=== PATIENT | male | born 1980 | race Caucasian/White ===

== ENCOUNTER 2018-12-26 20:37 | Inpatient (IN) | payer OTHER, SELFPAY ==
--- NOTE | 2018-12-26 | DI.CT.S_ITS ---
PROCEDURE: CT SOFT TISSUE NECK WO CON INDICATIONS: Sublingual salivary gland swelling, neck swelling TECHNIQUE: Non-contrast 3.0 mm axial sections acquired from the sella to the aortic arch. Additional oblique axial 3.0 mm sections acquired through the pharynx. 3 mm thick coronal and sagittal reformats were generated. For radiation dose reduction, the following was used: automated exposure control. COMPARISON: None. FINDINGS: Image quality: Excellent. Lymph nodes: No enlarged lymph nodes seen throughout the neck. Vessels: Non-opacified vessels appear normal in caliber. Neck spaces: There is a mass involving the tongue base measuring 2.4 x 3.8 cm. The vocal cords, false vocal cords, pyriform sinuses, epiglottis, vallecula, and tongue base all appear normal. Extramucosal spaces appear unremarkable. Glands: The parotid and submandibular glands appear normal, without stones. Thyroid gland is normal. Miscellaneous: Visualized brain and orbits appear normal. Lung apices appear clear. Superficial soft tissues appear normal. IMPRESSION: 1. A 2.4 x 3.8 cm mass involving the tongue base. Recommend direct visualization. 2. Normal appearance of parotid and submandibular glands. 3. An air-fluid level in the left maxillary sinus consistent with acute sinusitis and 4. No cervical lymphadenopathy. The result was discussedwith Dr. Grayson prior to dictation. Dictated by: Mi Godfrey M.D. on 12/27/2018 at 7:29 Transcribed by: JE on 12/27/2018 at 7:35 Approved by: Mi Godfrey M.D. on 12/27/2018 at 10:01
[2018-12-26] MEDS: FAMOTIDINE 20 MG/50 ML PIGGYBACK 200 MG IV (20:45)
--- NOTE | 2018-12-26 20:48 | ED.GENADULT ---
HPI - General Adult General Chief complaint: Allergic Reaction Stated complaint: tongue swelling, difficulty breathing after eating Time Seen by Provider: 12/26/18 20:42 Source: patient Mode of arrival: ambulatory Limitations: no limitations History of Present Illness HPI narrative: patient is a 37-year-old otherwise healthy male here for evaluation of swelling under his tongue. Patient states that earlier this afternoon he started to notice some swelling under the tongue that made it difficult for him to talk. He states that since this afternoon and has worsened somewhat. No problems breathing. Does have some difficulty with swallowing but he feels that that is because his tongue feels enlarged. He has no new exposures. Has not taking any medicines. He states that this was not associated with eating anything. No recent travel. No rashes. No abdominal pain. No headache. Has never anything like this before. Has not tried anything for the symptoms prior to arrival. Related Data Home Medications Medication Instructions Recorded Confirmed No Known Home Medications 12/26/18 12/26/18 Allergies Allergy/AdvReac Type Severity Reaction Status Date / Time No Known Drug Allergies Allergy Verified 12/26/18 21:08 Review of Systems Constitutional Denies fever(s) and Denies headache(s) Eyes Denies blurry vision and Denies itchy eyes ENT Ears, Nose, Mouth, and Throat: Denies vertigo, Denies dizziness, Denies headache(s), Denies hoarseness, Denies lip swelling, Denies epistaxis, Denies mouth pain, Denies nasal congestion, Denies nasal discharge, Denies nasal obstruction, Denies nose pain, Denies sore throat, Denies throat swelling and Reports tongue swelling Cardiovascular Denies chest pain and Denies dyspnea Respiratory Denies dyspnea and Denies wheezing Gastrointestinal Gastrointestinal: Denies abdominal pain, Denies nausea and Denies vomiting Genitourinary Denies dysuria Musculoskeletal Denies myalgias and Denies arthralgias Integumentary/Breasts Denies rash Neurologic Denies vertigo, Denies dizziness and Denies headache(s) Hematologic/Lymphatic Denies easy bleeding and Denies easy bruising Allergic/Immunologic Denies urticaria, Denies itchy eyes, Denies lip swelling, Denies throat swelling, Reports tongue swelling and Denies wheezing PFSH Medical History Healthy adult (Acute) Social History Smoking Status: Current some day smoker Social History Smoking Status: Current some day smoker Exam Initial Vital Signs Initial Vital Signs: Vital Signs Temperature 97.9 F 12/26/18 21:02 Pulse Rate 76 12/26/18 21:02 Respiratory Rate 20 12/26/18 21:02 Blood Pressure 138/90 12/26/18 21:02 Pulse Oximetry 98 12/26/18 21:02 Const General: cooperative, healthy appearing, comfortable, well developed, well groomed and No acute distress Nutritional Appearance: average body habitus Orientation: alert, awake and oriented x3 HENMT Head: normal to inspection and normocephalic Ears: TM's normal bilaterally Nose: external nose normal Face and sinus: normal facial exam Mouth: lip normal, tongue normal, No drooling, muffled voice and other ( Patient with swelling bilateral under his tongue with left greater than r) Teeth and gingiva: dentition normal Neck Lymphatic: No lymphadenopathy Chest Chest: normal inspection of the chest Resp Effort & Inspection: normal respiratory effort Auscultation: clear to auscultation bilaterally Cardio Rate: regular rate Rhythm: regular rhythm Pulses: radial pulses present GI Inspection: non-distended Palpation: soft Skin Lesions: no lesions Rashes: no rashes Neuro General: alert, awake and oriented x3 Extrem General: normal to inspection and capillary refill normal Psych Appearance: grossly normal and well kempt Course Orders Ordered: ED Orders 12/26/18 20:50 Basic Metabolic Panel Stat C-Reactive Protein Quant Stat Complement C4 Stat Complete Blood Count AUTO DIFF Stat Erythrocyte Sedimentation Rate Stat Hepatic (Liver) Panel Stat Sodium Chloride (Normal Saline 0.9%) 1,000 mls @ 125 mls/hr IV CONT TALIB Last Admin: 12/26/18 20:57 Dose: 125 mls/hr Discontinued Medications Diphenhydramine HCl (Benadryl) 25 mg IV NOW ONE Stop: 12/26/18 20:47 Last Admin: 12/26/18 20:56 Dose: 25 mg Famotidine (Pepcid) 20 mg in 50 mls @ 200 mls/hr IV NOW ONE Stop: 12/26/18 21:00 Last Infusion: 12/26/18 21:14 Dose: 0 mls/hr Admin: 12/26/18 20:45 Dose: 200 mls/hr Methylprednisolone (Solu-Medrol 125 Mg Vial) 125 mg IV NOW ONE Stop: 12/26/18 20:47 Last Admin: 12/26/18 20:57 Dose: 125 mg Vital Signs - 8 hr 12/26/18 21:02 12/26/18 21:30 12/26/18 22:00 Temperature 97.9 F Pulse Rate 76 72 Respiratory Rate 20 12 16 Blood Pressure 138/90 Blood Pressure [Right Arm] 113/72 124/70 Pulse Oximetry 98 95 98 Medical Decision Making Lab Data Lab results reviewed: Yes I reviewed the patient's lab results. Result diagrams: 12/26/18 20:50 12/26/18 20:50 Lab Results 12/26/18 12/26/18 12/26/18 Range/Units 20:50 20:50 20:50 WBC 11.9 H (4.5-11.0) X10^3/uL RBC 4.92 (4.5-5.9) X10^6/uL Hgb 14.6 (13.5-17.5) g/dL Hct 42.7 (41-53) % MCV 86.9 (80-100) fL MCH 29.6 (26-34) PG MCHC 34.1 (30-36) % RDW 13.1 (11.6-14.8) % Plt Count 243 (150-400) X10^3/uL Neut % (Auto) 64.7 (50-75) % Lymph % (Auto) 27.7 (25-40) % [place] % (Auto) 5.4 (3-14) % Eos % (Auto) 1.3 L (2-4) % Baso % (Auto) 0.9 (0-2) % Neut # (Auto) 7700 H (8274-3192) /uL Lymph # (Auto) 3300 (9162-4280) /uL [place] # (Auto) 600 (0-900) /uL Eos # (Auto) 200 (0-450) /uL Baso # (Auto) 100 (0-100) /uL ESR 2 (0-15) MM/HR Sodium 139 (137-145) mmol/L Potassium 4.0 (3.4-5.1) mmol/L Chloride 100 (98-107) mmol/L Carbon Dioxide 27 (22-32) mmol/L BUN 20 (9-20) mg/dL Creatinine 1.20 (0.66-1.25) mg/dL Estimated GFR > 60.0 (>60) mL/min BUN/Creatinine Ratio 16.7 (6-22) Glucose 124 H (70-100) mg/dL Calcium 9.4 (8.4-10.2) mg/dL Total Bilirubin (0.2-1.3) mg/dL Conjugated Bilirubin (0.0-0.3) md/dL Unconjugated Bilirubin (0.0-1.1) mg/dL AST (17-59) IU/L ALT (21-72) IU/L Alkaline Phosphatase (38-126) U/L C-Reactive Protein (<1.0) mg/dL Total Protein (6.3-8.2) g/dL Albumin (3.5-5.0) g/dL Globulin (1.7-4.1) g/dL Albumin/Globulin Ratio (1.0-2.8) 12/26/18 Range/Units 20:50 WBC (4.5-11.0) X10^3/uL RBC (4.5-5.9) X10^6/uL Hgb (13.5-17.5) g/dL Hct (41-53) % MCV (80-100) fL MCH (26-34) PG MCHC (30-36) % RDW (11.6-14.8) % Plt Count (150-400) X10^3/uL Neut % (Auto) (50-75) % Lymph % (Auto) (25-40) % [place] % (Auto) (3-14) % Eos % (Auto) (2-4) % Baso % (Auto) (0-2) % Neut # (Auto) (2550-1474) /uL Lymph # (Auto) (2873-5861) /uL [place] # (Auto) (0-900) /uL Eos # (Auto) (0-450) /uL Baso # (Auto) (0-100) /uL ESR (0-15) MM/HR Sodium (137-145) mmol/L Potassium (3.4-5.1) mmol/L Chloride (98-107) mmol/L Carbon Dioxide (22-32) mmol/L BUN (9-20) mg/dL Creatinine (0.66-1.25) mg/dL Estimated GFR (>60) mL/min BUN/Creatinine Ratio (6-22) Glucose (70-100) mg/dL Calcium (8.4-10.2) mg/dL Total Bilirubin 0.3 (0.2-1.3) mg/dL Conjugated Bilirubin 0.0 (0.0-0.3) md/dL Unconjugated Bilirubin 0.1 (0.0-1.1) mg/dL AST 33 (17-59) IU/L ALT 35 (21-72) IU/L Alkaline Phosphatase 42 (38-126) U/L C-Reactive Protein < 0.5 (<1.0) mg/dL Total Protein 7.2 (6.3-8.2) g/dL Albumin 4.7 (3.5-5.0) g/dL Globulin 2.5 (1.7-4.1) g/dL Albumin/Globulin Ratio 1.9 (1.0-2.8) MDM Narrative Medical decision making narrative: Patient with swelling under his tongue. This does appear to be mucosal. He is afebrile. Labs are unremarkable. Low suspicion for Riki's angina. Low suspicion for infection. He is not in any respiratory distress. His posterior oropharynx is unremarkable. He was not hypoxic. Was not tachypneic. Maintaining secretions. Was given Benadryl and Solu-Medrol here in the emergency department to see if this did not improve his symptoms which it did not. He did not worsen during his time here in the ER. He was not given epinephrine. He has no rash or other signs of anaphylaxis. I do suspect this is angioedema. No known triggers at this point. I discussed the case with DESTIN giron who will accept the patient for an airway watch. I discussed the admission with the patient who expressed understanding and agreement. Discharge Plan Departure Patient Disposition: Admitted As Inpatient Clinical Impression: Angioedema Qualifiers: Encounter type: initial encounter Qualified Code(s): T78.3XXA - Angioneurotic edema, initial encounter Admit Date/Time: 12/26/18 22:07 Admit Provider: Cory Giron
[2018-12-26] MEDS: diphenhydrAMINE 50 MG/ML VIAL 25 MG IV (20:56)
[2018-12-26] MEDS: methylPREDNISolone 125 MG/2 ML VIAL IV (20:57)
[2018-12-26] MEDS: SODIUM CHLORIDE 0.9% 1,000 ML 125 ML IV (20:57)
[2018-12-26 21:02] VITALS: BP 138/90; PULSE 76; RESP 20; TEMP 36.6; O2SAT 98; BMI 27.1
[2018-12-26 21:05] LABS: Add Manual Diff / Slide Review NO; Basophils Absolute Auto 100 /uL (0-100); Basophils Percent Auto 0.9 % (0-2); Eosinophils Absolute Auto 200 /uL (0-450); Eosinophils Percent Auto 1.3 % (2-4); Hematocrit 42.7 % (41-53); Hemoglobin 14.6 g/dL (13.5-17.5); Lymphocytes Absolute Auto 3300 /uL (1100-4500); Lymphocytes Percent Auto 27.7 % (25-40); Mean Corpuscular HGB Conc 34.1 % (30-36); Mean Corpuscular Hemoglobin 29.6 PG (26-34); Mean Corpuscular Volume 86.9 fL (80-100); Monocytes Absolute Auto 600 /uL (0-900); Monocytes Percent Auto 5.4 % (3-14); Neutrophils Absolute Auto 7700 /uL (1500-7000); Neutrophils Percent Auto 64.7 % (50-75); Platelet Count 243 X10^3/uL (150-400); Red Blood Cell Count 4.92 X10^6/uL (4.5-5.9); Red Cell Distribution Width 13.1 % (11.6-14.8); White Blood Cell Count 11.9 X10^3/uL (4.5-11.0)
[2018-12-26 21:25] LABS: BUN Creatinine Ratio 16.7 (6-22); Blood Urea Nitrogen 20 mg/dL (9-20); Calcium 9.4 mg/dL (8.4-10.2); Carbon Dioxide 27 mmol/L (22-32); Chloride 100 mmol/L (98-107); Estimated Glomerular Filt Rate > 60.0 mL/min (>60); Glucose 124 mg/dL (70-100); HEMOLYSIS 26 (0-50); Sodium 139 mmol/L (137-145)
[2018-12-26 21:27] LABS: Alanine Aminotransferase 35 IU/L (21-72); Albumin 4.7 g/dL (3.5-5.0); Albumin Globulin Ratio 1.9 (1.0-2.8); Alkaline Phosphatase 42 U/L (38-126); Aspartate Aminotransferase 33 IU/L (17-59); Bilirubin Total 0.3 mg/dL (0.2-1.3); Bilirubin Unconjugated 0.1 mg/dL (0.0-1.1); Erythrocyte Sedimentation Rate 2 MM/HR (0-15); Globulin 2.5 g/dL (1.7-4.1); HEMOLYSIS 25 (0-50); Total Protein 7.2 g/dL (6.3-8.2)
[2018-12-26 21:30] VITALS: BP 113/72; PULSE 72; RESP 12; O2SAT 95
[2018-12-26 21:38] LABS: C-Reactive Protein Quant < 0.5 mg/dL (<1.0)
[2018-12-26 22:00] VITALS: BP 124/70; RESP 16; O2SAT 98
[2018-12-26 22:13] VITALS: BMI 27.1
--- NOTE | 2018-12-26 22:56 | PM.HP.1 ---
History of Present Illness Date Patient Seen: 12/26/18 Time Patient Seen: 22:00 Chief complaint: tongue swelling, difficulty breathing after eating Narrative: Garret Scott is a 37-year-old male who has a medical history significant for colon tumor and partial colectomy who presents today with acute swelling was done. The patient states he noticed this afternoon that the left side was was becoming swollen. He reports pain with swallowing with pain under his tongue submandibular and anterior neck. He has associated change in taste with his saliva being more salty and complains of mild headache. His swelling became more pervasive and progressive with his tongue abrading on his left teeth. He reports some difficulty articulating related to the swelling but no change in phonation, stridor difficulty breathing or wheezing. He reports no rashes, hives, pruritus or other swelling. He reports cold symptoms 1 week ago with head congestion and rhinorrhea and lasted couple days went away and recurred again resolving about 2 days ago. He reports no travel or exposure to to chemicals or new medications. He took NyQuil for his cold symptoms which he is tolerated before is on no other daily medication. He has no known medical allergies he does have environmental allergies. He reports no fevers or chills, dizziness or neck pain, visual or hearing changes, chest pain or palpitations. He has had occasional cough but denies shortness of breath or dyspnea on exertion. Reports no abdominal pain, nausea vomiting, diarrhea or constipation. He has no other complaints of body aches. On presentation to the ER at 9:02 p.m. the patient was found to be afebrile with a temperature of 97.9?, heart rate of 76, blood pressure of 138/90 and respiratory rate of 20 with an oxygen saturation 98% on room air. Laboratory studies were done revealing a CBC with a slightly elevated white count 11.9, normal H&H of 14.6 and 42.7. He had low use in a pill count and elevated neutrophil percent. CMP was done all within normal range except for a nonfasting glucose 124. He has a CRP of less than 0.05. A C4 is yet pending and a ESR is added. The patient given Benadryl 25 mg, famotidine 20 mg, methylprednisolone 125 mg and has normal saline infusing at 125 mL an hour. Patient is admitted to intensive care with a working diagnosis of angioedema and concern for airway stability. Patient History Medical History Colon tumor (Acute) Chronic back pain (Acute) Obstructive sleep apnea on CPAP (Acute) Surgical History S/P partial colectomy (Acute) Social History household members: spouse Smoking Status: Current some day smoker alcohol intake: current Family & Social History Social History: household members spouse Prior Living Arrangements House Safety & Behavioral: Feels Safe in Current Yes Environment Been Physically Hurt or No Threatened By a Person Suicidal Ideation Description None Suicide Plan Description No Plan Tobacco & Substance use: Tobacco type cigarettes Smoking Status Current some day smoker alcohol intake current alcohol intake frequency a few times a month Substance Use Type does not use Comment: The patient is currently active working at [employer]. He is lives with spouse in a single family home. He was raised by his mother and stepfather and knows little of his biological father's health having no communication but is told he is in good health as his mother. His brother has a history of GERD and has a sister with no medical problems. 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 Smoking: Occasional cigarette smoking in social settings Alcohol: A few drinks per day on weekends Substance use: No recreational pharmaceuticals, herbal products or cannabis Advanced directives: Patient wishes to be full code and designates his Ravin to be his surrogate decision maker. Meds Home Medications Medication Instructions Recorded Confirmed Type No Known Home Medications 12/26/18 12/26/18 History Allergies Allergy/AdvReac Type Severity Reaction Status Date / Time No Known Drug Allergies Allergy Verified 12/26/18 21:08 Review of Systems Review of Systems All systems reviewed & are unremarkable except as noted in HPI and below Exam Vital Signs (past 8 hours): - 12/26/18 21:02 12/26/18 21:30 12/26/18 22:00 Temperature 97.9 F Pulse Rate 76 72 Respiratory Rate 20 12 16 Blood Pressure 138/90 Blood Pressure [Right Arm] 113/72 124/70 Pulse Oximetry 98 95 98 Oxygen Delivery Method Room Air Narrative Exam Narrative: General: Well developed, well nourished, afebrile and in no acute distress. Skin: Warm, dry, pink, no rashes, uticaria, no visible lesions HEENT: Normocephalic, PERRLA, EOMs intact without nystagmus, conjunctiva moist, sclera is anicteric, no ear pain, hearing grossly normal, no sinus tenderness to percussion, no rhinorrhea, oropharynx is pink with dry mucus membranes, tongue is not enlarged, marked left sublingual swelling without erythema, swelling with pain on palpation inframandibular and anterior neck, no soft palette swelling or redness, uvula midline, posterior pharynx not visualized, no facial or parotid swelling, no cervical lymphadenopathy Neck: Supple, upper anterior neck generalized swelling tender to palpation, no thyromegaly, trachea midline, no carotid bruits or JVD, no supraclavicular lymphadenopathy Cardiac: Regular rate and rhythm, S1-S2, no murmur, no gallops or rubs, 2+ radial pulse, 1+ dorsalis pedis pulse, capillary refill is brisk, no edema Chest: Symmetrical movement, breathing non labored, no cough present, BS equal bilateral without coarseness, crackles or wheezes Abdomen: Soft, no tenderness or guarding, no masses or organomegaly, no flank or suprapubic pain, BS normal. Back: Normal curvature, no tenderness to palpation, no CVA tenderness on percussion Extremities: Full ROM, no synovial effusions or deformities, strength 5/5 and symmetrical, stable gait Neuro: AAOx4, cranial nerves II-XII grossly intact, distal sensation intact to light touch, no paresthesias Psych: pleasant, thought coherent, stable mood and congruent affect Objective Labs Result Diagrams: 12/26/18 20:50 12/26/18 20:50 Labs: Laboratory Results - last 24 hr 12/26/18 12/26/18 12/26/18 20:50 20:50 20:50 WBC 11.9 H RBC 4.92 Hgb 14.6 Hct 42.7 MCV 86.9 MCH 29.6 MCHC 34.1 RDW 13.1 Plt Count 243 Neut % (Auto) 64.7 Lymph % (Auto) 27.7 [place] % (Auto) 5.4 Eos % (Auto) 1.3 L Baso % (Auto) 0.9 Neut # (Auto) 7700 H Lymph # (Auto) 3300 [place] # (Auto) 600 Eos # (Auto) 200 Baso # (Auto) 100 ESR 2 Sodium 139 Potassium 4.0 Chloride 100 Carbon Dioxide 27 BUN 20 Creatinine 1.20 Estimated GFR > 60.0 BUN/Creatinine Ratio 16.7 Glucose 124 H Calcium 9.4 Total Bilirubin Conjugated Bilirubin Unconjugated Bilirubin AST ALT Alkaline Phosphatase C-Reactive Protein Total Protein Albumin Globulin Albumin/Globulin Ratio 12/26/18 20:50 WBC RBC Hgb Hct MCV MCH MCHC RDW Plt Count Neut % (Auto) Lymph % (Auto) [place] % (Auto) Eos % (Auto) Baso % (Auto) Neut # (Auto) Lymph # (Auto) [place] # (Auto) Eos # (Auto) Baso # (Auto) ESR Sodium Potassium Chloride Carbon Dioxide BUN Creatinine Estimated GFR BUN/Creatinine Ratio Glucose Calcium Total Bilirubin 0.3 Conjugated Bilirubin 0.0 Unconjugated Bilirubin 0.1 AST 33 ALT 35 Alkaline Phosphatase 42 C-Reactive Protein < 0.5 Total Protein 7.2 Albumin 4.7 Globulin 2.5 Albumin/Globulin Ratio 1.9 Assessment & Plan Assessment & Plan narrative: This is a 37-year-old male patient who is admitted to intensive care with oral anterior neck swelling for close airway monitoring. 1. Sublingual swelling, acute -differential diagnosis: Angioedema, tongue itself appears normal size swelling is sublingual Allergic response, low eosinophil count, no rashes, no hives no pruritus Viral or bacterial infection, afebrile, rapid in onset over hours, no erythema or purulence white count minimally elevated, infection markers are negative, ESR is 2 Sialolithiasis, possible blocked salivary duct without swelling of the tongue tissue or enlargement the tongue size and swelling confined to the sublingual area -the patient reports swelling on the left underside of his tongue left greater than right, no protrusion of tongue from the mouth -change in taste but no fevers or chills -difficulty articulating but no change in phonation, hoarseness, stridor, wheezing or shortness of breath -swelling appears to be limited to the sublingual area extending inferiorly into the upper anterior neck -no airway compromise objectively or subjectively -noncontrast CT of the neck finds: Bilateral submandibular and parotid glands are unremarkable, mild to moderate soft tissue swelling involving the floor of the mouth anteriorly. There is no discrete fluid collection to suggest soft tissue abscess at this time. Requested Radiology to review scan and evaluate soft tissue swelling versus sublingual gland blockage. -Until completed the patient will be NPO will continue NS at 100 ml/hr -will continue steroids methylprednisolone 60 mg daily, will hold Benadryl since we are unsure ductal blockage -Will consult ENT 2. Neck swelling, acute -Rapid swelling of the upper anterior neck with concern for airway stability -Patient received Solu-Medrol 125 mg in the ED with Benadryl 50 mg. -he also received famotidine 20 mg IV which is continued 20 mg daily -no airway compromise noted will monitor closely 3. Sleep apnea using CPAP, chronic -Uses CPAP at home with a humidified circut, will not use CPAP at this time. 4. Colon cancer, chronic -no abdominal pain or complaints of blood in stool -status post partial colectomy -continuing surveillance colonoscopies annually with patient reported polypectomies The patient is admitted to the intensive care unit related to the rapidity of progression of the patient's symptoms and high risk complications and need for ongoing close monitoring. He will be inpatient at this time with anticipated length of stay greater than 2 midnights.
[2018-12-26] MEDS: SODIUM CHLORIDE 0.9% 1,000 ML 100 ML IV (23:00)
--- NOTE | 2018-12-26 23:00 | PC.NURSE ---
2210- Admit from Emergency. Patient oriented to the room and call light. Patient able to walk to the bed, gait stable. Patient is alert and oriented. Left side of Tongue is swollen and patient states it is painful. No difficulty managing secretions so far. No stridor and saturations are wnl. No history of allergy and no new medications. MRSA Swab sent.
--- NOTE | 2018-12-26 23:54 | PC.NURSE ---
Pt in NAD. Denies SOB. No stridor present. Managing secretions without difficulty. Only complaint is mild discomfort from the swelling under his tongue. Taken to ordered soft tissue CT at 2335 via (okayed with ISAC Griggs) accompanied by this RN. Pt tolerated well. Sp02 96% RA. Will monitor closely.
[2018-12-27] VITALS (10 sets, daily range): BP systolic 108–147; BP diastolic 41–77; PULSE 67–94; RESP 14–20; TEMP 35.8–37.1; O2SAT 95–98
[2018-12-27 05:13] LABS: Erythrocyte Sedimentation Rate 3 MM/HR (0-15)
[2018-12-27 05:17] LABS: Procalcitonin < 0.05 ng/mL (<0.5)
[2018-12-27] MEDS: SODIUM CHLORIDE 0.9% 1,000 ML 100 ML IV ×2 (07:39→19:24)
--- NOTE | 2018-12-27 07:52 | PM.PN.1 ---
Subjective Date Patient Seen: 12/27/18 Time Patient Seen: 07:52 Interval history: Follow-up on sublingual edema Patient seen at bedside. He doing okay. He has not seen any change in his swelling at the base of the tongue since admission. Nevertheless, patient is able to protect his airways. No trouble with swallowing. Mild discomfort at the base of the tongue as well as in the throat. No shortness of breath. No chest pain. No nausea or vomiting. Exam Vital Signs (past 8 hours): - 12/27/18 00:06 12/27/18 01:00 12/27/18 02:00 Temperature 96.5 F L Pulse Rate 68 75 75 Respiratory Rate 14 15 16 Blood Pressure 124/70 Pulse Oximetry 97 95 95 12/27/18 03:00 12/27/18 04:00 12/27/18 06:00 Temperature 96.8 F L Pulse Rate 67 77 72 Respiratory Rate 15 18 15 Blood Pressure 141/68 H 116/41 L 108/43 L Pulse Oximetry 95 98 95 12/27/18 07:38 Temperature 98 F Pulse Rate 89 Respiratory Rate 20 Blood Pressure 126/67 Pulse Oximetry 97 Oxygen Delivery Method Room Air Oxygen Flow Rate 0 Narrative Exam Narrative: General: Well developed, well nourished male in no acute distress Skin: Warm, dry, pink, no rashes, uticaria, no visible lesions. No hives HEENT: Normocephalic, PERRLA and EOMI BL. Oropharynx is pink with moist mucus membranes. Tongue is slightly bigger then usual with marked left sublingual swelling without erythema. There is swelling with pain on palpation inframandibular and in anterior neck. No soft palette swelling or redness. Uvula is at midline. Posterior pharynx not visualized. Neck: Supple, upper anterior neck generalized swelling tender to palpation, no thyromegaly, trachea midline. No cervical lymphadenopathy Cardiac: Regular rate and rhythm, S1-S2, no murmur, no gallops Chest: Clear to auscultation bilaterally, no wheezes, crackles, or rhonchi appreciated. Nonlabored breathing Abdomen: Soft, no tenderness or guarding, no masses or organomegaly Extremities: Full ROM Neuro: AAOx3, cranial nerves II-XII grossly intact, NFD Psych: pleasant, thought coherent, able to make his own decisions Objective Labs Result Diagrams: 12/26/18 20:50 12/26/18 20:50 Labs: Laboratory Results - last 24 hr 12/26/18 12/26/18 12/26/18 20:50 20:50 20:50 WBC 11.9 H RBC 4.92 Hgb 14.6 Hct 42.7 MCV 86.9 MCH 29.6 MCHC 34.1 RDW 13.1 Plt Count 243 Neut % (Auto) 64.7 Lymph % (Auto) 27.7 [place] % (Auto) 5.4 Eos % (Auto) 1.3 L Baso % (Auto) 0.9 Neut # (Auto) 7700 H Lymph # (Auto) 3300 [place] # (Auto) 600 Eos # (Auto) 200 Baso # (Auto) 100 ESR 2 Sodium 139 Potassium 4.0 Chloride 100 Carbon Dioxide 27 BUN 20 Creatinine 1.20 Estimated GFR > 60.0 BUN/Creatinine Ratio 16.7 Glucose 124 H Calcium 9.4 Total Bilirubin Conjugated Bilirubin Unconjugated Bilirubin AST ALT Alkaline Phosphatase C-Reactive Protein Total Protein Albumin Globulin Albumin/Globulin Ratio Procalcitonin Nasal Screen MRSA (PCR) 12/26/18 12/26/18 12/27/18 20:50 Unknown 04:12 WBC RBC Hgb Hct MCV MCH MCHC RDW Plt Count Neut % (Auto) Lymph % (Auto) [place] % (Auto) Eos % (Auto) Baso % (Auto) Neut # (Auto) Lymph # (Auto) [place] # (Auto) Eos # (Auto) Baso # (Auto) ESR 3 D Sodium Potassium Chloride Carbon Dioxide BUN Creatinine Estimated GFR BUN/Creatinine Ratio Glucose Calcium Total Bilirubin 0.3 Conjugated Bilirubin 0.0 Unconjugated Bilirubin 0.1 AST 33 ALT 35 Alkaline Phosphatase 42 C-Reactive Protein < 0.5 Total Protein 7.2 Albumin 4.7 Globulin 2.5 Albumin/Globulin Ratio 1.9 Procalcitonin Nasal Screen MRSA (PCR) Negative for mrsa 12/27/18 04:12 WBC RBC Hgb Hct MCV MCH MCHC RDW Plt Count Neut % (Auto) Lymph % (Auto) [place] % (Auto) Eos % (Auto) Baso % (Auto) Neut # (Auto) Lymph # (Auto) [place] # (Auto) Eos # (Auto) Baso # (Auto) ESR Sodium Potassium Chloride Carbon Dioxide BUN Creatinine Estimated GFR BUN/Creatinine Ratio Glucose Calcium Total Bilirubin Conjugated Bilirubin Unconjugated Bilirubin AST ALT Alkaline Phosphatase C-Reactive Protein Total Protein Albumin Globulin Albumin/Globulin Ratio Procalcitonin < 0.05 Nasal Screen MRSA (PCR) Assessment & Plan Assessment & Plan narrative: 37yo M with PMH of TOAN and hx of colon ca s/p partial colectomy admitted to intensive care with oral anterior neck and sublingual swelling for close airway monitoring. 1. Sublingual and neck swelling, acute -Possibly due to angioedema vs allergic reaction vs other -CT neck showed 1. A 2.4 x 3.8 cm mass involving the compresse in the tongue base. Recommend direct visualization -Given no improvement with initial therapy, will increase Solumedrol to 60mg IV Q8H, and continue Famotidine and Benadryl -Will consult ENT for possible direct visualization of the mass -Continue to monitor in ICU for airway compromise 2. Sleep apnea using CPAP, chronic -Uses CPAP at home with a humidified circut -Hold CPAP at this time given acute neck swelling 4. Colon cancer, resolved -status post partial colectomy -continuing surveillance colonoscopies annually with patient reported polypectomies Dispo: Increased Steroid dosing given no improvement in symptoms. Will consult ENT for further management of patient's swelling.
[2018-12-27] MEDS: FAMOTIDINE 20 MG/50 ML PIGGYBACK 200 MG IV ×2 (08:35→20:48)
[2018-12-27 08:43] LABS: Add Manual Diff / Slide Review NO; Basophils Absolute Auto 100 /uL (0-100); Basophils Percent Auto 1.1 % (0-2); Eosinophils Absolute Auto 0 /uL (0-450); Hematocrit 43.5 % (41-53); Lymphocytes Absolute Auto 700 /uL (1100-4500); Lymphocytes Percent Auto 7.7 % (25-40); Mean Corpuscular HGB Conc 34.4 % (30-36); Mean Corpuscular Hemoglobin 30.1 PG (26-34); Mean Corpuscular Volume 87.5 fL (80-100); Monocytes Absolute Auto 100 /uL (0-900); Monocytes Percent Auto 1.1 % (3-14); Neutrophils Absolute Auto 8200 /uL (1500-7000); Neutrophils Percent Auto 90.1 % (50-75); Platelet Count 247 X10^3/uL (150-400); Red Blood Cell Count 4.98 X10^6/uL (4.5-5.9); Red Cell Distribution Width 12.9 % (11.6-14.8)
[2018-12-27 08:58] LABS: BUN Creatinine Ratio 18.8 (6-22); Blood Urea Nitrogen 15 mg/dL (9-20); Calcium 9.4 mg/dL (8.4-10.2); Carbon Dioxide 25 mmol/L (22-32); Chloride 102 mmol/L (98-107); Estimated Glomerular Filt Rate > 60.0 mL/min (>60); Glucose 142 mg/dL (70-100); HEMOLYSIS < 15 (0-50); Potassium 4.5 mmol/L (3.4-5.1); Sodium 138 mmol/L (137-145)
--- NOTE | 2018-12-27 09:03 | SLP.IPNOTE ---
Orders for swallow evaluation received. Communicated with nursing. Patient to see ENT today. Orders on hold -will wait until cleared for PO intake by MD.
[2018-12-27] MEDS: methylPREDNISolone 125 MG/2 ML VIAL 60 MG IV ×3 (09:49→21:55)
[2018-12-27] MEDS: AMPICILLIN/SULBACTAM 1.5 GM 1.5 GM in SODIUM CHLORIDE 0.9% 100 ML IV ×2 (14:01→19:22)
[2018-12-27] MEDS: ACETAMINOPHEN SUSP 650 MG/20.3 ML UDC PO (14:02)
--- NOTE | 2018-12-27 14:24 | CONS_ITS ---
DATE OF SERVICE: 12/27/2018 CHIEF COMPLAINT: Airway obstruction and tongue swelling. 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 Known history of food allergy but did not feel consistent with episodes in the past and no pruritus at any point. URI symptoms in the last few weeks but no severe pain. Diagnosed with possible angioedema per [facility] ER note and admit history and physical, along with progress note from today reviewed. CT neck without contrast from yesterday was reviewed, showing fairly midline base of tongue swelling of greater than 3 cm without obvious fluid collection. Airway is patent. White blood cell count on admission 11.9 with 77% neutrophils. Currently, white blood cell count is 9. He has received 125 mg of Solu-Medrol, now 60 mg q.8 hours. He denies any worsening, denies significant dysphagia, and no airway obstruction. However, no marked improvement in his primarily floor of mouth swelling. No recent dental work or history consistent with foreign body. No other systemic symptoms. No other ENT complaints. PAST MEDICAL HISTORY: Reviewed on the admit history and physical and the chart. ALLERGIES: REVIEWED SOCIAL HISTORY: Reviewed on the admit history and physical and the chart. REVIEW OF SYSTEMS: Reviewed on the admit history and physical and the chart. FAMILY HISTORY: Reviewed on the admit history and physical and the chart. PHYSICAL EXAM: VITAL SIGNS: On the chart, well-developed, well-nourished male speaking in full sentences, tolerating secretions well, grossly healthy. HEENT: Head is normocephalic, atraumatic. External ears are normal. Ear canals and TMs not examined. Nose: External nose is normal. He has some crusting and old and bright blood on the right side. Left side is narrowed. Oral cavity: No trismus. Obvious eagm-[id number]-[id number]-right floor of mouth swelling with the tongue slightly pushed superiorly anteriorly but posteriorly normal. No discreet lesions. No purulence milked from either submandibular duct. No obvious dental disease. Indirect nasal pharyngoscopy and laryngoscopy not attempted due to obvious tongue swelling. NECK: Soft and nontender. Possible fullness in the submental area only. No masses. PROCEDURE: Flexible laryngoscopy. DESCRIPTION OF PROCEDURE: Following verbal consent, the flexible laryngoscope was passed through the right nasal cavity to reveal unremarkable base of tongue, vallecula, epiglottis, pyriform sinuses, and normally mobile true vocal cords without lesion. Airway is widely patent. ASSESSMENT: 1. Floor of mouth/base of tongue swelling of unclear etiology, mild improvement with steroids but not marked. Cannot rule out bacterial infectious etiology, possible angioedema, possible other allergic reaction. Low suspicion for tumor. 2. Tobacco dependence. PLAN: I've discussed with the patient and the hospitalist, Dr. Grayson. I recommend beginning Unasyn for possible infectious etiology now, continue the steroid, possibly change to Decadron up to 20 mg single IV dose if necessary. He may resume diet at this point, monitor for any progressive airway obstruction. If improves, he may be discharged home as early as tomorrow on Augmentin and prednisone, follow up as an outpatient if desired. The patient and his agree with the plan, understand, and are appreciative. Garret Scott - BRO/capo/kv doc#: [id number]/job#: [id number] dd: 12/27/2018 12:36:00 dt: 12/27/2018 14:09:00 DICTATING /COPIES TO: Isaiah Figueredo MD ; Unknown COPIES MNE: EMERALD SIDHU
--- NOTE | 2018-12-27 14:29 | PC.NURSE ---
Pt with uneventful shift. Pt with continued swelling under tongue, L side is more swollen than R. Pt with raw, painful edges of tongue from where his tongue rubbed on his teeth. Dr. Figueredo from ENT to bedside with nasopharyngeal scope. No swelling noted in oropharynx or vocal cords. Dr. Figueredo recommended IV abx and okayed diet. Pt started on Unasyn and started on CLD. Pt with raw and painful tongue, given tylenol elixir. Pt now resting, drinking water without difficulty. Pt's was at bedside this shift and updated with pt's status and plan of care.
--- NOTE | 2018-12-27 16:15 | ST.IPCSEOM ---
Care Team Visit Care Team Role Provider Type José Miguel Garcias DO Emergency Provider Physician Specialty: Emergency Medicine Address: [address] [place] [address], [id number] Email: ISAC Gee Admit Provider Physician Attending Provider Specialty: Internal Medicine Address: [address] [place] [address], [id number] Email: Current Diagnoses Localized swelling, mass and lump, neck (12/26/18) Past Medical History (Last Updated 12/27/18 @ 00:02 by ISAC Gee) Colon tumor (Acute Medical) Chronic back pain (Acute Medical) Obstructive sleep apnea on CPAP (Acute Medical) Speech-Language Pathology Swallow Evaluation MOLD BUILDER Clinical Swallow Evaluation Start: 12/27/18 16:01 Freq: Status: Active Protocol: Document 12/27/18 16:02 MALINDAK (Rec: 12/27/18 16:15 ANT [id number]) Clinical Swallow Evaluation Session Time Visit Start Time 13:00 Visit Stop Time 13:30 Total Visit Minutes 30 Referral Reason for Referral Swelling in tongue Setting Assessment Location Acute Care Visit Type Note Type Initial Evaluation Next Note Type Next Note Type Progress Note Patient Information Identification Type Name ID Wristband History 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 emergency room last night at the request of his for progressive tongue swelling and speech changes. Known history of food allergy but did not feel consistent with episodes in the past and no pruritus at any point. URI symptoms in the last few weeks but no severe pain. Diagnosed with possible angioedema per [facility] ER note and admit history and physical, along with progress note from today reviewed. CT neck without contrast from yesterday was reviewed, showing fairly midline base of tongue swelling of greater than 3 cm without obvious fluid collection. ASSESSMENT: 1. Floor of mouth/base of tongue swelling of unclear etiology, mild improvement with steroids but not marked. Cannot rule out bacterial infectious etiology, possible angioedema, possible other allergic reaction. Low suspicion for tumor. 2. Tobacco dependence. Subjective Observations Pt was up in his bed with present. Evaluation Liquids Trialed Ice Chips Thin Solids Trialed Dysphagia Mechanical Dysphagia Advanced Mechanical Soft Administration Type Self-Feeding Oral Impairment Mildly Impaired Oral Strategies Other Oral Phase Comments pt's OM examination indicated right side lingual swelling under tongue. Pt was able to stick out tongue, but lateralization was painful to him. Observation of the underside of his tongue showed abrasions where his teeth had rubbed his tongue. The pt reported that his tongue feels like it is coated underneath with a lot of cancer sores. He requested Tylenol for the discomfort. Pharyngeal Impairment WNL Pharyngeal Phase Comments Pharyngeal phase of swallow was WFL Findings Dysphagia Type Oral phase dysphagia secondary to pain with tongue movement Impressions Pt essentially demonstrated difficulty with chewing secondary to lingual pain caused by tongue abrasions due to teeth/tongue rubbing. Pharyngeal phase was WFL. Trials of different food textures were given to pt who reported that it was too painful to chew. Recommended that pt eat foods that are soft and do not require chewing such as soups, milkshakes, etc. Pt agreed and asked to get him some soup. Diet can be advanced as pt's comfort level improves. Diet Recommendations Liquids Order Thin Diet Order Dysphagia Advanced Medication Recommendations As Tolerated Comments Diet texture for comfort only NOT dysphagia Treatment Plan Placement Recommendations after Home Discharge Appropriate for Therapy Yes: Will follow 1x more to assure improvement MOLD BUILDER Follow Up x1 Referrals/Other Recommended Referrals Primary Care Physician ENT Consult
[2018-12-27] MEDS: MORPHINE 2 MG/ML INJ IV ×2 (18:16→21:53)
[2018-12-28] VITALS: BP 133/75; PULSE 93; RESP 18; TEMP 36.8; O2SAT 95
[2018-12-28] MEDS: AMPICILLIN/SULBACTAM 1.5 GM 1.5 GM in SODIUM CHLORIDE 0.9% 100 ML IV ×2 (01:52→06:32)
[2018-12-28] MEDS: MORPHINE 2 MG/ML INJ IV (01:54)
[2018-12-28 05:19] VITALS: BP 127/59; PULSE 86; RESP 16; TEMP 36.8; O2SAT 94
[2018-12-28 05:49] LABS: Add Manual Diff / Slide Review NO; Basophils Absolute Auto 0 /uL (0-100); Eosinophils Absolute Auto 0 /uL (0-450); Hematocrit 44.1 % (41-53); Hemoglobin 14.6 g/dL (13.5-17.5); Lymphocytes Absolute Auto 1000 /uL (1100-4500); Lymphocytes Percent Auto 9.1 % (25-40); Mean Corpuscular Hemoglobin 29.3 PG (26-34); Mean Corpuscular Volume 88.7 fL (80-100); Monocytes Absolute Auto 300 /uL (0-900); Monocytes Percent Auto 2.9 % (3-14); Neutrophils Absolute Auto 9700 /uL (1500-7000); Platelet Count 251 X10^3/uL (150-400); Red Blood Cell Count 4.97 X10^6/uL (4.5-5.9); Red Cell Distribution Width 13.2 % (11.6-14.8); White Blood Cell Count 11.1 X10^3/uL (4.5-11.0)
[2018-12-28 05:51] LABS: BUN Creatinine Ratio 16.3 (6-22); Blood Urea Nitrogen 13 mg/dL (9-20); Calcium 9.2 mg/dL (8.4-10.2); Carbon Dioxide 26 mmol/L (22-32); Chloride 103 mmol/L (98-107); Estimated Glomerular Filt Rate > 60.0 mL/min (>60); Glucose 157 mg/dL (70-100); HEMOLYSIS < 15 (0-50); Potassium 4.4 mmol/L (3.4-5.1); Sodium 138 mmol/L (137-145)
[2018-12-28] MEDS: methylPREDNISolone 125 MG/2 ML VIAL 60 MG IV (06:33)
--- NOTE | 2018-12-28 07:43 | P.DS_ITS ---
History of Present Illness Date Patient Seen: 12/28/18 Time Patient Seen: 07:42 Chief complaint: tongue swelling, difficulty breathing after eating Narrative: 37yo M with PMH of colon tumor and partial colectomy and TOAN on CPAP who presented with acute swelling of his tongue. The patient stated he noticed the afternoon of admission that the left side was was becoming swollen. He reported pain with swallowing under his tongue submandibular and anterior neck. He has associated change in taste with his saliva being more salty and complained of mild headache. His swelling became more pervasive and progressive with his tongue abrading on his left teeth. He reported some difficulty a rticulating related to the swelling but no change in phonation, stridor difficulty breathing or wheezing. He reported no rashes, hives, pruritus or other swelling. He reported cold symptoms 1 week ago with head congestion and rhinorrhea and lasted couple days, went away, and recurred again resolving about 2 days prior to admission. He reported no travel or exposure to to chemicals or new medications. He took NyQuil for his cold symptoms which he is tolerated before is on no other daily medication. He has no known medical allergies. He does have environmental allergies. He reported no fevers or chills, dizziness or neck pain, visual or hearing changes, chest pain or palpitations. He has had occasional cough but denies shortness of breath or dyspnea on exertion. Reported no abdominal pain, nausea vomiting, diarrhea or constipation. He has no other complaints of body aches. Discharge Providers Date of admission: 12/26/18 22:07 Discharge Date: 12/28/18 Consults: 12/26/18 22:36 Consult to Respiratory Therapy Evaluate & Treat Comment: neck swelling airway monitoring Physician Instructions: Evaluate and treat 12/26/18 22:37 Consult to Discharge Planning Routine Comment: Consult to Speech Therapy Evaluate & Treat Comment: salivary gland swelling, impaired swallow Physician Instructions: Evaluate and treat Discharge provider: Diane Grayson MD Summary Discharge Diagnosis: Floor of mouth/base tongue swelling: unclear etiology, resolving Sleep apnea Colon tumor, s/p partial colectomy Hospital Course: In ED, patient's vitals showed afebrile with a temperature of 97.9?, heart rate of 76, blood pressure of 138/90 and respiratory rate of 20 with an oxygen saturation 98% on room air. Laboratory studies were done revealing a CBC with a slightly elevated white count 11.9, normal H&H of 14.6 and 42.7. CMP was done all within normal range except for a nonfasting glucose 124. He has a CRP of less than 0.05. A C4 is yet pending and a ESR is added. The patient given Benadryl 25 mg, famotidine 20 mg, methylprednisolone 125 mg and has normal saline infusing at 125 mL an hour. Patient is admitted to intensive care to manage base of tongue/mouth floor swelling and concern for airway stability. Once on the floors, patient initially started on Solumedrol 60mg IV Daily and Famotidine. Patient's condition however did not improve until morning, therefore he was switched to Solumedrol 60mg IV Q8H and Benadryl was added on. CT neck was performed which initially showed soft tissue swelling at the base of the tongue but then finalized as possible large mass. ENT was consulted. Dr. Figueredo evaluated patient and performed flexible laryngoscopy. Airway was patent. For the swelling, ENT recommended addition of antibioitcs, as it could be infectious etiology as well. Patient was started on Unasyn IV. Over the course of the day patient's swelling has significantly improved. He was able to tolerate PO and initially started on CLD, but then switched to regular diet. His mouth discomfort was alleviated by viscous lidocaine gargle. He was switched to PO Prednisone with fast taper, and Augmentin 7 day course. Status at Discharge Functional status at discharge: independent ambulation Overall status at discharge: patient is progressing back to baseline Time Spent with Patient Greater than 30 minutes Exam Vital Signs (past 8 hours): - 12/28/18 00:00 12/28/18 05:19 Temperature 98.2 F 98.2 F Pulse Rate 93 H 86 Respiratory Rate 18 16 Blood Pressure 133/75 127/59 L Pulse Oximetry 95 94 Oxygen Delivery Method Room Air Oxygen Flow Rate 0 Narrative Exam Narrative: General: Well developed, well nourished male in no acute distress Skin: Warm, dry, pink, no rashes, uticaria, no visible lesions. No hives HEENT: Normocephalic, PERRLA and EOMI BL. Oropharynx is pink with moist mucus membranes. Tongue is slightly bigger then usual with marked left sublingual swelling without erythema. There is swelling with pain on palpation inframan dibular and in anterior neck. No soft palette swelling or redness. Uvula is at midline. Posterior pharynx not visualized. Neck: Supple, upper anterior neck generalized swelling tender to palpation, no thyromegaly, trachea midline. No cervical lymphadenopathy Cardiac: Regular rate and rhythm, S1-S2, no murmur, no gallops Chest: Clear to auscultation bilaterally, no wheezes, crackles, or rhonchi appreciated. Nonlabored breathing Abdomen: Soft, no tenderness or guarding, no masses or organomegaly Extremities: Full ROM Neuro: AAOx3, cranial nerves II-XII grossly intact, NFD Psych: pleasant, thought coherent, able to make his own decisions Objective Labs Result Diagrams: 12/28/18 04:59 12/28/18 04:59 Labs: Laboratory Results - last 24 hr 12/27/18 12/27/18 12/28/18 08:04 08:04 04:59 WBC 9.0 11.1 H RBC 4.98 4.97 Hgb 15.0 14.6 Hct 43.5 44.1 MCV 87.5 88.7 MCH 30.1 29.3 MCHC 34.4 33.0 RDW 12.9 13.2 Plt Count 247 251 Neut % (Auto) 90.1 H D 88.0 H Lymph % (Auto) 7.7 L D 9.1 L [place] % (Auto) 1.1 L 2.9 L Eos % (Auto) 0.0 L 0.0 L Baso % (Auto) 1.1 0.0 Neut # (Auto) 8200 H 9700 H Lymph # (Auto) 700 L 1000 L [place] # (Auto) 100 300 Eos # (Auto) 0 0 Baso # (Auto) 100 0 Sodium 138 Potassium 4.5 Chloride 102 Carbon Dioxide 25 BUN 15 Creatinine 0.80 Estimated GFR > 60.0 BUN/Creatinine Ratio 18.8 Glucose 142 H Calcium 9.4 12/28/18 04:59 WBC RBC Hgb Hct MCV MCH MCHC RDW Plt Count Neut % (Auto) Lymph % (Auto) [place] % (Auto) Eos % (Auto) Baso % (Auto) Neut # (Auto) Lymph # (Auto) [place] # (Auto) Eos # (Auto) Baso # (Auto) Sodium 138 Potassium 4.4 Chloride 103 Carbon Dioxide 26 BUN 13 Creatinine 0.80 Estimated GFR > 60.0 BUN/Creatinine Ratio 16.3 Glucose 157 H Calcium 9.2 Discharge Plan Discharge Plan Discharge Problem: Angioedema Patient Disposition: Home Discharge comment: PLEASE TAKE PREDNISONE FOLLOWS: 60MG DAY AFTER DISCHARGE, 40MG NEXT DAY, 20MG NEXT DAY, 10MG FINAL DAY PLEASE CONTINUE TO TAKE AUGMENTIN TWICE A DAY FOR 7 DAYS PLEASE CONTINUE TO TAKE FAMOTIDINE AND BENADRYL SCHEDULED. MAY STOP BENADRYL IF BECOMES TO DROWSY Discharge Med Rec/Prescriptions Prescriptions: New prednisone 10 mg tablet 10 mg PO DAILY Qty: 15 RF: 0 amoxicillin-pot clavulanate [Augmentin] 875-125 mg tablet 1 tab PO BID Qty: 14 RF: 0 lidocaine HCl [Lidocaine Viscous] 2 % Solution 15 ml PO Q8HR PRN (Reason: Sore Throat) 10 Days RF: 0 famotidine 20 mg tablet 20 mg PO BID 42 Days Qty: 20 RF: 0 diphenhydramine HCl [Benadryl Allergy] 25 mg tablet 25 mg PO BID Qty: 20 RF: 0 Provider Discharge Instructions Diet: Diet as Tolerated and Regular Discharge Data Attending Provider: Cory Waters Admit Date/Time: 12/26/18 22:07
[2018-12-28 07:45] VITALS: BP 128/80; PULSE 98; RESP 16; TEMP 36.8; O2SAT 99
[2018-12-28] MEDS: FAMOTIDINE 20 MG/50 ML PIGGYBACK 200 MG IV (08:09)
[2018-12-28] MEDS: AMOXICILLIN/CLAV 875/125 MG 1 TAB PO (09:03)
[2018-12-28] MEDS: predniSONE 20 MG TABLET 60 MG PO (09:03)
[2018-12-28] MEDS: LIDOCAINE VISCOUS 2% 15 ML SOLUTION PO (09:03)
--- NOTE | 2018-12-28 09:15 | ST.IPTN ---
Care Team Visit Care Team Role Provider Type José Miguel Garcias DO Emergency Provider Physician Address: [address] [place] [address], [id number] ISAC Gee Admit Provider Physician Attending Provider Address: [address] [place] [address], [id number] STOCK REPLENISHER Treatment Note STOCK REPLENISHER Treatment Note Start: 12/27/18 16:01 Freq: Status: Active Protocol: Document 12/28/18 09:09 [facility] (Rec: 12/28/18 09:15 [facility] [id number]) Speech Pathology Treatment Note Session Time Visit Start Time 08:30 Visit Stop Time 08:35 Total Visit Minutes 5 Setting Treatment Setting Acute Care Visit Type Note Type Treatment Note Next Note Type Next Note Type Treatment Note General Information General Information A 37-year-old male [employer] presented urgently to [facility] emergency room last night at the request of his for progressive tongue swelling and speech changes. Known history of food allergy but did not feel consistent with episodes in the past and no pruritus at any point. URI symptoms in the last few weeks but no severe pain. Diagnosed with possible angioedema per [facility] ER note and admit history and physical, along with progress note from today reviewed. CT neck without contrast from yesterday was reviewed, showing fairly midline base of tongue swelling of greater than 3 cm without obvious fluid collection. ASSESSMENT: 1. Floor of mouth/base of tongue swelling of unclear etiology, mild improvement with steroids but not marked. Cannot rule out bacterial infectious etiology, possible angioedema, possible other allergic reaction. Low suspicion for tumor. 2. Tobacco dependence. Subjective Identification Type Name Observations/Patient Presentation Patient awake and alert, sitting up in bed with no family present. No complaints of pain pre/post treatment. He had finished breakfast prior to STOCK REPLENISHER arrival. He is scheduled to DC today. Chief Complaint(s) Swallowing Patient Knowledge/Awareness of STOCK REPLENISHER Role Excellent in Treatment Objective Treatment Activities No trials of soild textures, but patient able to tolerate thin liquids without difficulty. He received a breakfast tray with regular textures and stated to STOCK REPLENISHER that he was able to tolerate his omelet and huitron without difficulty. STOCK REPLENISHER recommended soft diet yesterday due to ease in mastication secondary to lingual swelling. Patient stated that his tongue was still a little swollen, but he was able to get his breakfats down without trouble. No overt s/s of aspiration observed with thin liquids via cup. Assessment Patient Response to Treatment Excellent Rehab Potential Excellent Progress Towards Goals Excellent Progress Assessment of Overall Progress Improving Assessment of Improvement Improving swallowing function. Able to tolerate regular textures and thin liquids. No overt s/s of aspiration. Patient stated that his mouth was improving and that he had no difficulty swallowing anything this morning. Recommend upgrade diet to thin liquids and regular textures, straw okay. Medication to be administered whole, as tolerated. STOCK REPLENISHER recommended taking medicaiton in carrier, should he have any difficulty with oral control secondary to mild lingual swelling. Patient verbalized understanding. At this time, no further speech therapy needs warranted . Please reconsult if needed. D/C. Reviewed with Patient Goals Progress Being Made Home Exercise Program Patient/Caregiver Understanding Excellent
--- NOTE | 2018-12-28 09:49 | PC.NURSE ---
Pt d/c'd to home per MD order at 0950. D/c education completed. Pt was given d/c packet, rx, and reviewed medications, side effects, next dose due. Reviewed and reinforced when to seek emergency medical tx for worsening symptoms. Reviewed disease process. Pt will make own f/u appt with PCP on [facility] base and obtain referall for ENT. Rx faxed to pharmacy and hard scripts sent with pt as well. Pt verbalizes understanding of all education and voices no questions at this time. Reviewed PRN med administration with Dr. Grayson on rounds this AM. Dr. Grayson states pt is stable to drive himself home after breakfast. All belongings are gathered. Pt ambulates to [facility] independently in no acute distress escorted by [employer]ER for d/c home.
--- NOTE | 2018-12-28 11:12 | CM.DANOTE ---
Addendum entered by Jamilah Vieira LPN 12/28/18 11:19: Case discussed as plan in Team Rounds this morning. Dr. Grayson noted that ENT did see pt and that he had reponded to treatment ideas and she planned to d/c him to home today. Checked in earlier this morning with intent to see pt. Noted that he had already left for home: 0950 while this CM was still in Team Rounds. No concerns re the d/c plan today were identified by the care team members. Original Note: Discharge Planning/Care Management DCP: asssessment: late entry for 12/27: Case received on 12/27 and discussed in Team Rounds. Pt is a 37 year old male who admitted to care of hospitalist team the night of 12/26. Payer: [employer]. PCP: [facility] Dr. Grayson reported that the full dx was still in process and ENT was to consult. P: see pt 12/28 after more is known and Dr. Grayson updates team in Team Rounds. Advanced directive, confirm from FAMILY Start: 12/26/18 22:53 Freq: Q24H Status: Discharge Protocol: Document 12/26/18 22:53 [facility] (Rec: 12/27/18 00:03 [facility] [id number]) Advance Directive, confirm on record Time 00:03 Person contacted Patient Copy received No CM Discharge Assessment Start: 12/28/18 11:11 Freq: Status: Discharge Protocol: Document 12/28/18 11:12 ITV (Rec: 12/28/18 11:12 ITV [id number]) Discharge Planning Assessment Advance Directives? Yes Advance Directives on File No History Provided By Medical Record Prior Living Arrangements House Household Members spouse Independent with ADL's Yes Is patient alert and oriented? Yes Review Status In Process Next Review Type Continued Stay Review
== END 2018-12-28 09:50 | disposition home or self-care (01) | DRG 607 ==
LOC: ED 21:49 → ICU 12-27 09:22
PROVIDERS: Admitting Provider Nurse Practitioner Adult Health; Emergency Provider Emergency Medicine; Visit Provider Nurse Practitioner Adult Health
DX: R22.1 Localized swelling, mass and lump, neck (principal); G47.33 Obstructive sleep apnea (adult) (pediatric); F17.200 Nicotine dependence, unspecified, uncomplicated; R22.0 Localized swelling, mass and lump, head
CPT/HCPCS: 36415; 36591; 70490; 80048; 80076; 84145; 85025; 85651; 86140; 86160; 87797; 92526; 92610; 96361; 96365; 96375; 99283; 99284; J0295; J1200; J2270; J2930

== ENCOUNTER → 2020-08-21 07:56 | Outpatient (CLI) | payer OTHER, SELFPAY ==
[2020-08-11 11:09] VITALS: BMI 27.1
--- NOTE | 2020-08-21 | DI.ECHO.S_ITS ---
[facility] +---------+ [facility] +---------+ : : [address] : : : [place], [place] : : : : [phone] : : : : Phone: [phone]+ Echocardiogram Report + + :Name: HERNANDEZ MITCHELL Study Date: 08/21/2020 Height: 75 in : :[facility] Weight: 210 lb : : Gender: Male BSA: 2.2 m2 : :: 1980 Age: 39 yrs BP: 130/62 mmHg: :Reason For Study: CP : : Performed By: Rudolph Campbell : :Referring: MITCHELL GARCIA : + + Interpretation Summary 1) Normal left ventricular thickness, size, wall motion and systolic function (EF 60-65%). 2) Normal right ventricular size and function. 3) No significant valvular abnormalities. 4) No prior Echo available for comparison. Procedure: A two-dimensional transthoracic echocardiogram with color flow and Doppler was performed. The study quality was technically good. There is no prior echocardiogram noted for this patient. The patient was in normal sinus rhythm during the exam. Left Ventricle: The left ventricle is normal in size. There is normal left ventricular wall thickness. The ejection fraction is estimated to be 60-65%. There are no focal wall motion abnormalities. Right Ventricle: The right ventricle is normal in size and function. Atria: Both atria are normal in size. There is no Doppler evidence for an atrial septal defect. Mitral Valve: The mitral valve is normal in structure and function. There is no mitral regurgitation noted. Aortic Valve: The aortic valve is trileaflet. The aortic valve opens well. There is no aortic valve stenosis. No aortic regurgitation is present. Tricuspid Valve: The tricuspid valve is normal in structure and function. No tricuspid regurgitation. Pulmonary artery pressures cannot be estimated because of the lack of a measurable TR jet velocity. Pulmonic Valve: The pulmonic valve is normal in structure and function. There is trace pulmonic regurgitation. Great Vessels: The aortic root is normal size. The dimensions of the ascending aorta are normal. The pulmonary artery is normal size. The IVC is of normal diameter and collapses greater than 50% with a sniff. This suggests a low right atrial pressure of 3 mm Hg. Pericardium/ Pleura There is no pericardial effusion. There is no pleural effusion. MMode/2D Measurements & Calculations LVIDd: 4.9 cm LVOT diam: 2.1 cm LVIDs: 3.4 cm Ao root diam: 3.1 cm FS: 31.0 % asc Aorta Diam: 3.1 cm EPSS: 0.21 cm Ao Arch Diam (Prox Trans): 2.5 cm IVSd: 0.91 cm LVPWd: 0.88 cm LV hernandez. diameter/BSA (cm/m^2): 2.2 LV sys. diameter/BSA (cm/m^2): 1.5 LA dimension: 3.3 cm RA long axis: 4.5 cm LA A2 area: 19.1 cm2 RA area: 17.5 cm2 LA A4 area: 24.1 cm2 RA vol: 58.6 ml LA length (vol): 5.3 cm RA : 26.2 ml/m2 LA vol: 73.2 ml IVC diam: 2.0 cm LA vol index: 32.7 ml/m2 TAPSE: 2.7 cm Doppler Measurements & Calculations Ao V2 max: 149.2 cm/sec LVOT Max Johnny: 139.1 cm/sec Ao V2 mean: 107.2 cm/sec LV V1 max P.7 mmHg Ao max P.9 mmHg LV V1 VTI: 23.9 cm Ao mean P.0 mmHg HERMINIO(I,D): 2.8 cm2 Ao V2 VTI: 29.4 cm HERMINIO(V,D): 3.3 cm2 sev ratio: 0.81 HERMINIO indexed to BSA (cm^2/m^2): 1.3 MV E max johnny: 89.0 cm/sec PA V2 max: 95.8 cm/sec MV A max johnny: 35.5 cm/sec PA V2 mean: 69.2 cm/sec MV E/A: 2.5 PA mean P.1 mmHg Med Peak E' Johnny: 8.5 cm/sec PA pr(Accel): 12.2 mmHg E/E' med: 10.4 Lat Peak E' Johnny: 12.8 cm/sec E/E' lat: 6.9 E/e' average: 8.7 MV dec time: 0.18 sec SV(LVOT): 83.4 ml Reading Physician:12:53 PM
== END ==
PROVIDERS: Referring Provider Physician Assistant; Visit Provider Physician Assistant
DX: R07.9 Chest pain, unspecified (principal)
CPT/HCPCS: 93306

== ENCOUNTER 2024-02-12 09:35 | Day surgery (SDC) | payer OTHER, SELFPAY ==
[2020-08-11 11:09] VITALS: BMI 27.1
[2024-02-12 09:54] VITALS: BP 130/78; PULSE 72; RESP 18; TEMP 37.1; O2SAT 100
[2024-02-12] MEDS: LACTATED RINGERS 1,000 ML 42 ML IV (10:04)
--- NOTE | 2024-02-12 10:09 | PM.PREOP ---
Pre-operative Note COVID-19 COVID-19 status: Not tested Interval Note History & Physical reviewed/Exam performed by Physician: Yes Changes to H&P: No ASA Class (for procedural sedation): II
[2024-02-12 10:33] VITALS: BP 92/55; PULSE 79; RESP 12; TEMP 36.1; O2SAT 99
--- NOTE | 2024-02-12 10:36 | PM.OP.COLON ---
Operative Date/Time/Diagnoses Date of procedure: 02/12/24 Time of procedure: 10:36 Pre-op diagnosis: History of colon polyps Post-op diagnosis: same Procedure & Clinicians Study performed: Colonoscopy Surgeon: Kirt Mckinley Procedure Notes Procedure in detail: Surgeon: Kirt Mckinley MD Anesthesia: Gemma Rodríguez CRNA Procedure: The patient was brought to the endoscopy suite, placed in left lateral decubitus position. The patient was connected to monitoring devices. A time-out was performed. Sedation was administered. Once the patient was adequately sedated, a digital rectal exam was performed and was normal except for mixed hemorrhoids. The scope was then inserted and advanced to the cecum where the appendiceal orifice was identified and photographed. The scope was then slowly withdrawn over greater than 6 minutes. The mucosa was thoroughly inspected. No polyps were found. No anastomosis was noted left colon. The scope was retroflexed in the rectum. Internal hemorrhoids were noted. The scope was straightened and removed. The patient was awakened and brought to recovery. Scope withdrawal time: 8 minutes Sedation time: 17 minutes EBL: 0 Findings: Hemorrhoids Post-procedure Recommendations: Colonoscopy in 10 years Disposition: PACU
[2024-02-12 10:38] VITALS: BP 102/55; PULSE 70; PULSE 75; RESP 12; O2SAT 98; O2SAT 99
[2024-02-12 10:43] VITALS: BP 103/61; PULSE 70; RESP 16; O2SAT 99
[2024-02-12 10:51] VITALS: BP 108/61; PULSE 69; RESP 12; TEMP 36.1; O2SAT 99
== END 2024-02-12 11:05 | disposition home or self-care (01) ==
PROVIDERS: PCP Family Medicine; Referring Provider Surgery; Visit Provider Surgery
PROC: 0DJD8ZZ Inspection of Lower Intestinal Tract, Via Natural or Artificial Opening Endoscopic (ICD-10-PCS; CPT 45378; principal; 2024-02-12 10:45)
DX: Z12.11 Encounter for screening for malignant neoplasm of colon (principal); Z86.010 Personal history of colon polyps; K64.8 Other hemorrhoids
CPT/HCPCS: 45378; J2704

== ENCOUNTER → 2025-04-10 07:12 | Outpatient (CLI) | payer OTHER, SELFPAY ==
[2020-08-11 11:09] VITALS: BMI 27.1
--- NOTE | 2025-04-10 07:13 | DI.NM.S_ITS ---
PROCEDURE: NM ESTUARDO PERF SPECT REST & STR Rest and exercise myocardial perfusion SPECT with gated imaging and ejection fraction RADIOPHARMACEUTICAL: 12.0 mCi Tc-99m sestamibi IV at rest and 26.7 mCi Tc-99m sestamibi IV at peak exercise. A 1 day-protocol was performed. INDICATIONS: CHEST PAIN PQRS ATTESTATIONS: Measure 322 - Is this imaging test primarily performed on a low-risk surgery patient for preoperative evaluation within 30 days preceding their low-risk non-cardiac surgery? Low-risk surgery is defined as cardiac or myocardial infarction less than 1%, including (but not limited to) endoscopic procedures, superficial procedures, cataract surgery, and excisional breast surgery: Answer: No Measure 323 - Is this imaging test performed primarily for the monitoring of an asymptomatic patient who had percutaneous coronary intervention on the visit date or within 2 years of the visit date? Answer: No Measure 324 - Is this imaging test performed primarily for the initial detection and risk assessment on an asymptomatic, low coronary heart disease patient? Low CHD risk definition = clinicians should consider the maximum number of available patient factors used to estimate risk based on [place] (ATP III criteria), typically age, gender, diabetes, smoking status, and use of blood pressure medication, and integrate age appropriate estimates for missing elements, such as LDL or standard blood pressure. Answer: No TECHNIQUE: Radiopharmaceutical was injected at peak stress test, and also at rest. SPECT images were obtained. SPECT myocardial perfusion images were displayed in short axis, horizontal long axis, and vertical long axis views. Gated images were reviewed using [employer] software. COMPARISON: None. CARDIAC STRESS: A standard Gary treadmill exercise tolerance test was performed by the patient under the supervision of an attending staff. The patient exercised for 13 minutes and 9 seconds; functional aerobic impairment (JESSICA) is -12%. Hemodynamic data: There is normal blood pressure and heart rate response to exercise stress. Patient achieved 107% of maximum predicted heart rate at peak exercise. Symptoms: Patient denied chest pain during exercise. EKG: No diagnostic EKG changes of ischemia; no ectopy. FINDINGS: Raw data: There is good myocardial labeling by radiotracer. No significant motion artifacts. Anzs-vk-[id number] ratio is 0.29 (normal is less than 0.38 for sestamibi tracer, and less than 0.50 for thallium tracer). Left ventricle function: Gated images demonstrate normal left ventricle wall thickening. No segmental wall motion abnormality. No transient ischemic dilation; TID is 0.75 (normal less than 1.3). The left ventricle resting end-diastolic volume is 113 mL. Left ventricle stress ejection fraction is 72%; normal values are above 45%. Myocardial perfusion: There is normal distribution of activity in the left and right ventricular myocardium. No fixed or reversible perfusion defects. IMPRESSION: 1. Negative exercise myocardial perfusion scan for ischemia and infarction. 2. Above average exercise tolerance. Dictated by: Rolando Murphy M.D. on 04/10/2025 at 16:22 Approved by: Rolando Murphy M.D. on 04/10/2025 at 16:23
== END ==
PROVIDERS: PCP Family Medicine; Referring Provider Nurse Practitioner Primary Care; Visit Provider Nurse Practitioner Primary Care
DX: R07.1 Chest pain on breathing (principal)
CPT/HCPCS: 78452; 93017; A9502